=== PATIENT | female | born 1965 | race Caucasian/White ===

== ENCOUNTER 2025-05-20 07:45 | Day surgery (SDC) | payer OTHER ==
[~2025-05-20 07:45] MED LIST: Lactated Ringers 1,000 ML IV ONE
[2025-05-20] MEDS: Lactated Ringers 1,000 ML IV SCH (08:08)
[2025-05-20] MEDS: Ak-Dilate OPHTHALMIC*** 0.71 ML, Cyclogyl 1% OPHTH SOL 0.71 ML, GATIFLOXACIN 0.5% OPHTH... OP SCH (08:28)
[2025-05-20] MEDS: TETRACAINE 0.5% STERI-UNIT SOL OP ONE ×2 (08:28→08:43)
[2025-05-20] MEDS ORDERED: Zofran 4 MG/2 ML VIAL IV PRN (10:00)
[2025-05-20] MEDS ORDERED: VIGAMOX/BSS 0.15% SYR IO NR (10:00)
[2025-05-20] MEDS ORDERED: BETADINE 5% OPHTHALMIC 30 ML OP NR (10:00)
[2025-05-20] MEDS ORDERED: Epinephrine Preservative Free 1 MG/ML INTRAOP NR (10:00)
[2025-05-20] MEDS ORDERED: TRIAMCINOLONE 15 MG/ML INJ INTRAOP NR (10:00)
[2025-05-20] MEDS ORDERED: DEXMEDETOMIDINE 80 MCG/20ML-NS IV NR (10:00)
[2025-05-20] MEDS ORDERED: propofoL IV ONE (11:58)
[2025-05-20] MEDS ORDERED: Versed 2 MG/2 ML Injection ONE (12:02)
[2025-05-20] MEDS ORDERED: SUBLIMAZE 100 MCG/2 ML ONE (12:08)
[2025-05-20 12:26] VITALS: RESP 18
[2025-05-20 12:31] VITALS: O2SAT 95
[2025-05-20] MEDS: ACETAZOLAMIDE 250 MG TABLET PO ONE (12:32)
[2025-05-20 12:37] VITALS: BP 127/81; PULSE 73; TEMP 98.4
== END 2025-05-20 12:52 | disposition home or self-care (01) ==
LOC: SDC 07:45
PROVIDERS: ATTEND Ophthalmology
DX: H25.811 Combined forms of age-related cataract, right eye (principal)

== ENCOUNTER 2025-06-24 11:36 | Day surgery (SDC) | payer OTHER ==
[2025-06-24] MEDS ORDERED: Lactated Ringers 1,000 ML IV ONE (11:44)
[2025-06-24 11:50] VITALS: RESP 18
[2025-06-24] MEDS: Lactated Ringers 1,000 ML IV SCH (12:07)
[2025-06-24] MEDS: TETRACAINE 0.5% STERI-UNIT SOL OP ONE ×2 (12:08)
[2025-06-24] MEDS: Ak-Dilate OPHTHALMIC*** 0.71 ML, Cyclogyl 1% OPHTH SOL 0.71 ML, GATIFLOXACIN 0.5% OPHTH... OP SCH (12:08)
[2025-06-24] MEDS ORDERED: propofoL IV ONE ×2 (13:10→13:25)
[2025-06-24] MEDS ORDERED: SUBLIMAZE 100 MCG/2 ML ONE (13:16)
[2025-06-24 13:35] VITALS: TEMP 97
[2025-06-24] MEDS: ACETAZOLAMIDE 250 MG TABLET PO ONE (13:35)
[2025-06-24 13:50] VITALS: BP 150/80; PULSE 74; O2SAT 96
[2025-06-24] MEDS ORDERED: VIGAMOX/BSS 0.15% SYR IO NR (14:00)
[2025-06-24] MEDS ORDERED: Epinephrine Preservative Free 1 MG/ML INTRAOP NR (14:00)
[2025-06-24] MEDS ORDERED: DEXMEDETOMIDINE 80 MCG/20ML-NS IV NR (14:00)
[2025-06-24] MEDS ORDERED: Zofran 4 MG/2 ML VIAL IV PRN (14:00)
[2025-06-24] MEDS ORDERED: BETADINE 5% OPHTHALMIC 30 ML OP NR (14:00)
[2025-06-24] MEDS ORDERED: TRIAMCINOLONE 15 MG/ML INJ INTRAOP NR (14:00)
== END 2025-06-24 14:00 | disposition home or self-care (01) ==
LOC: SDC 11:36
PROVIDERS: ATTEND Ophthalmology
DX: H25.812 Combined forms of age-related cataract, left eye (principal)